=== PATIENT | female | born 1945 | race Caucasian/White ===

== ENCOUNTER 2017-09-08 13:09 | Emergency (ER) | payer OTHER ==
[~2017-09-08] VITALS: Ht 142.2 cm; Wt 49.0 kg
[2017-09-08 13:22] VITALS: Ht 142.2 cm; Wt 49.0 kg
--- NOTE | 2017-09-08 14:15 | ERD ---
ER Documentation Chief Complaint Chief Complaint DIZZINESS X 1 DAY HPI The patient is a 72-year-old female, presenting with minimal dizziness for 1 day , she feels as if the room is spinning, had similar symptoms previously, complains of nausea but no vomiting. She denies fever, cough, chest pain, dyspnea, abdominal pain, vomiting, dysuria, diarrhea. She smokes, does not drink Past medical history: Hypertension, dyslipidemia Past surgical history: Hysterectomy ROS All systems reviewed and are negative except as per history of present illness. Medications Home Meds Active Scripts Meclizine Hcl* (Antivert*) 12.5 Mg Tab, 25 MG PO Q6H Y for DIZZINESS, #20 TAB Prov:JULIA CAMP MD 09/08/17 Physical Exam Vitals Vital Signs Date Time Temp Pulse Resp B/P Pulse Ox O2 Delivery O2 Flow Rate FiO2 09/08/17 16:12 78 20 139/76 99 Room Air 09/08/17 13:22 97.6 58 16 142/64 97 Physical Exam Const: No acute distress. Head: Atraumatic. Eyes: Normal Conjunctiva. ENT: Normal External Ears, Nose and Mouth. Neck: Full range of motion. No meningismus. Resp: Clear to auscultation bilaterally. Cardio: Regular rate and rhythm. Abd: Soft, non distended, normal bowel sounds, non tender. Skin: No petechiae or rashes. Back: No midline or flank tenderness. Ext: No cyanosis, or edema. Neur: Awake and alert. No focal deficit Psych: Normal Mood and Affect. Result Diagram: 09/08/17 1439 09/08/17 1439 Results 24 hrs Laboratory Tests Test 09/08/17 14:39 White Blood Count 6.610^3/ul Red Blood Count 4.3510^6/ul Hemoglobin 14.0g/dl Hematocrit 40.5% Mean Corpuscular Volume 93.1fl Mean Corpuscular Hemoglobin 32.2pg Mean Corpuscular Hemoglobin Concent 34.6g/dl Red Cell Distribution Width 12.5% Platelet Count 80135^3/UL Mean Platelet Volume 11.8fl Neutrophils % 54.8% Lymphocytes % 34.1% Monocytes % 7.9% Eosinophils % 2.4% Basophils % 0.6% Nucleated Red Blood Cells % 0.0/100WBC Neutrophils # 3.610^3/ul Lymphocytes # 2.310^3/ul Monocytes # 0.510^3/ul Eosinophils # 0.210^3/ul Basophils # 0.010^3/ul Nucleated Red Blood Cells # 0.010^3/ul Prothrombin Time 13.3Sec Prothrombin Time Ratio 1.0 INR International Normalized Ratio 1.01 Activated Partial Thromboplast Time 32.9Sec Sodium Level 144mmol/L Potassium Level 4.6mmol/L Chloride Level 105mmol/L Carbon Dioxide Level 28mmol/L Anion Gap 16 Blood Urea Nitrogen 17mg/dl Creatinine 0.72mg/dl Glucose Level 90mg/dl Calcium Level 9.6mg/dl Current Medications Medications (Trade) Dose Ordered Sig/Kamar Route PRN Reason Start Time Stop Time Status Last Admin Dose Admin Meclizine HCl (Antivert) 25 mg ONCE ONCE PO 09/08/17 14:30 09/08/17 14:31 DC 09/08/17 15:21 Procedures/[place] [address] Radiology Main Line: [phone] DIAGNOSTIC IMAGING REPORT Patient: JOSSY REDDING : 1945 Age: 72 Sex: F MR #: [id number] DOS: 09/08/17 1419 Ordering MD: JULIA CAMP MD Location: E/R Room/Bed: PROCEDURE: CT Brain without contrast. CLINICAL INDICATION: Headaches. Neurologic deficit TECHNIQUE: A CT of the brain was performed on multidetector high-resolution CT scanner utilizing axial sections from the skull base through the vertex without contrast. One or more of the following dose reduction techniques were used: Automated exposure control, Adjustment of the mA and/or kV according to patient size, and/or use of iterative reconstruction technique. DICOM images are available. DOSE: CTDI = 45 mGy and the DLP = 720 mGy-cm. COMPARISON: None available FINDINGS: No acute intracranial hemorrhage, significant mass effect or midline shift. The davis-white differentiation is grossly preserved. The ventricles are normal in size for age. Vascular calcifications. No significant opacification of the visualized paranasal sinuses or mastoids. IMPRESSION: No acute intracranial findings. RPTAT: AA .Srikanth Loya MD, MD Date Time Electronically viewed and signed by .Srikanth Loya MD, MD on 09/08/2017 14:51 .T/ CC: JULIA CAMP MD MEDICAL MAKING DECISION: The patient is a 72-year-old female, presenting with acute dizziness, most likely due to acute benign positional vertigo. She was treated with Antivert with good response. The differential diagnoses considered include but are not limited to central causes such as cerebellar infarct, cerebellar hemorrhage, cerebellar tumor, acoustic neuroma, peripheral causes such as benign positional vertigo, labyrinthitis, medication, Meniere's disease. Departure Diagnosis: Primary Impression: Dizziness Condition: Good Comments She was discharged with Antivert I discussed the findings with the patient. I advised the patient to follow-up with the primary physician in about 1-2 days, sooner if needed and return if any concern. Disclaimer: Inadvertent spelling and grammatical errors are likely due to EHR/ dictation software use and do not reflect on the overall quality of patient care. Also, please note that the electronic time recorded on this note does not necessarily reflect the actual time of the patient encounter. JULIA CAMP MD Sep 08, 2017 14:15
[2017-09-08] MEDS ORDERED: MECLIZINE 12.5 MG TAB PO ONE (14:30)
--- NOTE | 2017-09-08 14:51 | RADRPT ---
PROCEDURE: CT Brain without contrast. CLINICAL INDICATION: Headaches. Neurologic deficit TECHNIQUE: A CT of the brain was performed on multidetector high-resolution CT scanner utilizing a xial sections from the skull base through the vertex without contrast. One or more of the following dose reduction techniques were used: Automated exposure control, Adjustment of the mA and/or kV acc ording to patient size, and/or use of iterative reconstruction technique. DICOM images are available . DOSE: CTDI = 45 mGy and the DLP = 720 mGy-cm. COMPARISON: None available FINDINGS: No acute intracranial hemorrhage, significant mass effect or midline shift. The davis-white different iation is grossly preserved. The ventricles are normal in size for age. Vascular calcifications. No significant opacification of the visualized paranasal sinuses or mastoids. IMPRESSION: No acute intracranial findings. RPTAT: AA .Srikanth Loya MD, Date Time Electronically viewed and signed by .Srikanth Loya MD, on 09/08/2017 14:51 .T/
[2017-09-08 15:07] LABS: BASOPHILS % 0.6 % (0.0-2.0); EOSINOPHILS # 0.2 10^3/ul (0.0-0.5); EOSINOPHILS % 2.4 % (0.0-7.0); HEMATOCRIT 40.5 % (37.0-47.0); LYMPHOCYTES # 2.3 10^3/ul (0.8-2.9); LYMPHOCYTES % 34.1 % (15.0-51.0); MEAN CORPUSCULAR HEMOGLOBIN 32.2 pg (29.0-33.0); MEAN CORPUSCULAR HGB CONC 34.6 g/dl (32.0-37.0); MEAN CORPUSCULAR VOLUME 93.1 fl (82.0-101.0); MEAN PLATELET VOLUME 11.8 fl (7.4-10.4); MONOCYTE # 0.5 10^3/ul (0.3-0.9); MONOCYTES % 7.9 % (0.0-11.0); NEUTROPHIL # 3.6 10^3/ul (1.6-7.5); NEUTROPHILS % 54.8 % (39.0-77.0); PLATELET COUNT 188 10^3/UL (140-415); RED BLOOD COUNT 4.35 10^6/ul (4.20-5.40); RED CELL DISTRIBUTION WIDTH 12.5 % (11.5-14.5); WHITE BLOOD COUNT 6.6 10^3/ul (4.8-10.8)
[2017-09-08 15:21] LABS: INR 1.01; PROTIME 13.3 Sec (12.2-14.2)
[2017-09-08 15:22] LABS: PARTIAL THROMBOPLASTIN TIME 32.9 Sec (25.0-35.0)
[2017-09-08 15:28] LABS: CALCIUM 9.6 mg/dl (8.4-10.2); CREATININE 0.72 mg/dl (0.44-1.00); POTASSIUM 4.6 mmol/L (3.5-5.1)
[2017-09-08] MEDS ORDERED: MECL12.574 PO (16:01)
[2017-09-08 16:12] VITALS: BP 139/76; PULSE 78; RESP 20
== END 2017-09-08 16:35 | disposition home or self-care (01) ==
LOC: E/R 13:09
DX: R42 Dizziness and giddiness (principal); R40.2252 Coma scale, best verbal response, oriented, at arrival to emergency department; I10 Essential (primary) hypertension; R40.2142 Coma scale, eyes open, spontaneous, at arrival to emergency department; R40.2362 Coma scale, best motor response, obeys commands, at arrival to emergency department; R07.9 Chest pain, unspecified
CPT/HCPCS: 36415; 70450; 80048; 85025; 85610; 85730; Z7502; Z7610